=== PATIENT | female | born 1975 | race Caucasian/White ===

== ENCOUNTER 2016-09-22 08:09 | Emergency (ER) | payer OTHER ==
[~2016-09-22] VITALS: Ht 157.5 cm; Wt 130.3 kg
[~2016-09-22 08:09] MED LIST: AMOXICILLIN500 MG PO; APRI1 EACH PO; AUGMENTIN875 MG PO; BACTRIM,SEPT1 TABLET PO; BENTYL20 MG PO; BUPROBAN150 MG PO; CEFDINIR300 MG PO; CIPRODEX OTIC7.5 ML RIGHT EAR; CYCLOBENZAPRINE10 MG PO; DIAZEPAM5 MG PO; DITROPAN XL15 MG PO; FIORICET,ESG1 TABLET PO; FLEXERIL10 MG PO; IBUPROFEN800 MG PO; INDOMETHACIN25 MG PO; LEVOTHROID25 MCG PO; LEVOTHYROXINE200 MC1; LEVOTHYROXINE50 MCG; LEXAPRO10 MG PO; MACROBID100 MG PO; MOBIC7.5 MG PO; NEURONTIN100 MG PO; NORCO 5/3251 TABLET PO; PERCOCET 5/31 TABLET PO; PHENERGAN-CODE120 ML PO; PRILOSEC20 MG PO; PROMETHAZINE HC25 M1 PO; PYRIDIUM200 MG PO; RANITIDINE HCL150 M1 PO; REGLAN10 MG PO; REQUIP1 MG PO; ROPINIROLE HCL1 MG PO; SYNTHROID175 MCG PO; SYNTHROID200 MCG PO; SYNTHROID25 MCG PO; SYNTHROID50 MCG PO; TRAMADOL HCL50 MG PO; TYLENOL REGULA325 MG PO; ULTRACET1 TABLET PO; WELLBUTRIN XL150 MG PO; ZANTAC150 MG PO; [UNRECOGNIZED DRUG - CODE] PO; synthroid
[2016-09-22 08:42] LABS: HEMATOCRIT 37.2 % (36.0-46.0); MCH 26.9 PG (29.0-34.0); MCHC 31.2 G/DL (30.0-36.0); MCV 86.3 FL (83-99); MEAN PLAT.VOLUME 10.6 uM^3 (9.5-12.4); PLATELET COUNT 416 K/uL (156-360); RBC DIS.WIDTH-CV 14.7 % (11.8-14.6); RBC DIS.WIDTH-SD 46.7 % (39-53); RED BLOOD COUNT 4.31 M/uL (3.80-5.20); WHITE BLOOD COUNT 13.5 K/uL (4.1-10.2)
[2016-09-22] MEDS ORDERED: CARAFATE100 MG/ML PO (08:53)
[2016-09-22] MEDS ORDERED: VENLAFAXINE HCL50 MG PO (08:54)
[2016-09-22] MEDS ORDERED: AMITRIPTYLINE H10 MG PO (08:55)
[2016-09-22 08:56] LABS: CHLORIDE 104 mEq/L (99-109); POTASSIUM 4.8 mEq/L (3.7-5.4); SODIUM 138 mEq/L (136-147)
[2016-09-22 08:58] LABS: GLUCOSE 128 mg/dL (70-99)
[2016-09-22 08:59] LABS: ANION GAP 11 MEQ/L (2-14)
[2016-09-22 09:02] LABS: GFR ESTIMATE (CALCULATED) > 59 mL/min/
[2016-09-22 09:03] LABS: UREA NITROGEN (BUN) 15 mg/dL (9-23)
[2016-09-22 09:05] LABS: TROP-I INTERPRETATION NEGATIVE; TROPONIN-I 0.01 ng/mL (0.0-0.30)
[2016-09-22 11:35] VITALS: BP 114/65
== END 2016-09-22 11:44 | disposition home or self-care (01) ==
LOC: EME 08:09
DX: R07.89 Other chest pain (principal); F32.9 Major depressive disorder, single episode, unspecified; E05.90 Thyrotoxicosis, unspecified without thyrotoxic crisis or storm; Z87.19 Personal history of other diseases of the digestive system; Z88.6 Allergy status to analgesic agent
CPT/HCPCS: 71020; 80048; 84484; 85027; 85379; 93005; 99281; 99283; J2405

== ENCOUNTER 2017-02-13 15:23 | Emergency (ER) | payer OTHER ==
[~2017-02-13] VITALS: Ht 157.5 cm; Wt 124.1 kg
[~2017-02-13 15:23] MED LIST changes: +AMITRIPTYLINE H10 MG PO; +CARAFATE100 MG/ML PO; +VENLAFAXINE HCL50 MG PO
[2017-02-13 16:17] LABS: HEMATOCRIT 37.9 % (36.0-46.0); MCH 26.4 PG (29.0-34.0); MCHC 31.9 G/DL (30.0-36.0); MCV 82.8 FL (83-99); MEAN PLAT.VOLUME 11.1 uM^3 (9.5-12.4); PLATELET COUNT 403 K/uL (156-360); RBC DIS.WIDTH-CV 14.3 % (11.8-14.6); RBC DIS.WIDTH-SD 42.6 % (39-53); RED BLOOD COUNT 4.58 M/uL (3.80-5.20); WHITE BLOOD COUNT 13.4 K/uL (4.1-10.2)
[2017-02-13 16:21] LABS: ADD MIUA? YES; BILIRUBIN NEGATIVE; BLOOD NEGATIVE; COLOR AMBER ((YELLOW)); GLUCOSE (STRIP) NEGATIVE; KETONES 20; LEUKOCYTES MODERATE; NITRITE NEGATIVE; PROTEIN (STRIP) 30; SPECIFIC GRAVITY 1.027 (1.000-1.030); UROBILINOGEN 0.2 MG/DL (0.2-1.0)
[2017-02-13 16:26] LABS: CHLORIDE 107 mEq/L (99-109); POTASSIUM 3.9 mEq/L (3.7-5.4); SODIUM 139 mEq/L (136-147)
[2017-02-13 16:28] LABS: GLUCOSE 111 mg/dL (70-99)
[2017-02-13 16:30] LABS: ANION GAP 12 MEQ/L (2-14); TOTAL BILIRUBIN 0.3 mg/dL (0.0-1.0)
[2017-02-13 16:32] LABS: ALKALINE PHOSPHATASE 158 IU/L (3-129); GFR ESTIMATE (CALCULATED) > 59 mL/min/
[2017-02-13 16:33] LABS: UREA NITROGEN (BUN) 10 mg/dL (9-23)
[2017-02-13 16:35] LABS: BACTERIA RARE /HPF; EPITHELIAL CELLS 2+ /HPF; MUCUS 4+ /LPF; RED BLOOD CELLS 0-5 /HPF (0-5); UCUL ADDED? YES
[2017-02-13 16:43] LABS: QUANTITATIVE HCG < 4.0 MIU/ML
[2017-02-13 17:15] LABS: LIPASE 12 U/L (1.0-51.0)
[2017-02-13] MEDS ORDERED: CIPRO500 MG PO (18:53)
[2017-02-13] MEDS ORDERED: PERCOCET 5/31 TABLET PO (18:53)
[2017-02-13 19:00] VITALS: BP 131/84
== END 2017-02-13 19:11 | disposition home or self-care (01) ==
LOC: EME 15:23
PROVIDERS: Physician Assistant
DX: N39.0 Urinary tract infection, site not specified (principal); R10.31 Right lower quadrant pain; E03.9 Hypothyroidism, unspecified; Z90.49 Acquired absence of other specified parts of digestive tract; Z87.19 Personal history of other diseases of the digestive system; Z88.6 Allergy status to analgesic agent
CPT/HCPCS: 74176; 80053; 81003; 83690; 84702; 85027; 87086; 99281; 99285

== ENCOUNTER 2017-03-06 12:17 | Emergency (ER) | payer OTHER ==
[~2017-03-06] VITALS: Ht 157.5 cm; Wt 123.7 kg
[~2017-03-06 12:17] MED LIST changes: +CIPRO500 MG PO
[2017-03-06 13:29] LABS: HEMATOCRIT 38.2 % (36.0-46.0); MCH 26.4 PG (29.0-34.0); MCHC 31.7 G/DL (30.0-36.0); MCV 83.4 FL (83-99); MEAN PLAT.VOLUME 11.1 uM^3 (9.5-12.4); PLATELET COUNT 398 K/uL (156-360); RBC DIS.WIDTH-CV 14.6 % (11.8-14.6); RBC DIS.WIDTH-SD 44.1 % (39-53); RED BLOOD COUNT 4.58 M/uL (3.80-5.20); WHITE BLOOD COUNT 10.7 K/uL (4.1-10.2)
[2017-03-06 13:39] LABS: CHLORIDE 105 mEq/L (99-109); POTASSIUM 4.3 mEq/L (3.7-5.4); SODIUM 140 mEq/L (136-147)
[2017-03-06 13:41] LABS: GLUCOSE 114 mg/dL (70-99)
[2017-03-06 13:43] LABS: ANION GAP 14 MEQ/L (2-14); TOTAL BILIRUBIN 0.3 mg/dL (0.0-1.0)
[2017-03-06 13:45] LABS: ALKALINE PHOSPHATASE 127 IU/L (3-129); GFR ESTIMATE (CALCULATED) > 59 mL/min/
[2017-03-06 13:46] LABS: UREA NITROGEN (BUN) 13 mg/dL (9-23)
[2017-03-06 13:53] LABS: QUANTITATIVE HCG < 4.0 MIU/ML
[2017-03-06 14:42] LABS: ADD MIUA? YES; BILIRUBIN NEGATIVE; BLOOD LARGE; COLOR AMBER ((YELLOW)); GLUCOSE (STRIP) NEGATIVE; KETONES 5; LEUKOCYTES NEGATIVE; NITRITE NEGATIVE; PROTEIN (STRIP) 100; SPECIFIC GRAVITY 1.028 (1.000-1.030); UROBILINOGEN 0.2 MG/DL (0.2-1.0)
[2017-03-06 15:14] LABS: EPITHELIAL CELLS 2+ /HPF; MUCUS 1+ /LPF; RED BLOOD CELLS TNTC /HPF (0-5); WHITE BLOOD CELLS RARE /HPF (0-5)
[2017-03-06 15:15] LABS: BACTERIA 1+ /HPF; CASTS NONE SEEN /LPF; CRYSTALS NONE SEEN; UCUL ADDED? YES
[2017-03-06 15:16] LABS: LIPASE 19 U/L (1.0-51.0)
[2017-03-06] MEDS ORDERED: TORADOL10 MG PO (17:13)
[2017-03-06 17:35] VITALS: BP 118/74
== END 2017-03-06 17:42 | disposition home or self-care (01) ==
LOC: EME 12:17
DX: R31.9 Hematuria, unspecified (principal); R10.9 Unspecified abdominal pain; E03.9 Hypothyroidism, unspecified; Z90.49 Acquired absence of other specified parts of digestive tract; Z88.5 Allergy status to narcotic agent; Z87.19 Personal history of other diseases of the digestive system
CPT/HCPCS: 80053; 81003; 83690; 84702; 85027; 87086; 99281; 99284

== ENCOUNTER 2017-08-03 09:10 | Emergency (ER) | payer OTHER ==
[~2017-08-03] VITALS: Ht 157.5 cm; Wt 115.1 kg
[~2017-08-03 09:10] MED LIST changes: +TORADOL10 MG PO
[2017-08-03 11:44] VITALS: BP 134/81
== END 2017-08-03 11:45 | disposition home or self-care (01) ==
LOC: EME 09:10
DX: J02.9 Acute pharyngitis, unspecified (principal); R05 Cough; E01.0 Iodine-deficiency related diffuse (endemic) goiter; Z88.5 Allergy status to narcotic agent
CPT/HCPCS: 70360; 87651 90; 99281; 99284; J1100